=== PATIENT | female | born 1995 | race Caucasian/White ===

== ENCOUNTER 2018-10-27 19:42 | Emergency (ER) | payer OTHER, SELFPAY ==
[2018-10-27 19:44] VITALS: BP 143/78; PULSE 91; RESP 14; TEMP 36.9; O2SAT 99; BMI 37.9
--- NOTE | 2018-10-27 20:01 | US_ITS ---
STUDY: VENOUS DOPPLER ULTRASOUND - LEFT LOWER EXTREMITY REASON FOR EXAM: Female, 23 years old. Left-sided pain TECHNIQUE: Ultrasound evaluation of the deep vein system to include kan-scale imaging and compression was performed. Kan-scale imaging and Doppler sonographic evaluation, including duplex spectral analysis and qualitative color flow sonography, was performed. COMPARISON: None. FINDINGS: Common Femoral Vein: Normal compression, spontaneity and augmentation. Normal color Doppler. Common Femoral Vein/Greater Saphenous Junction: Normal compression, spontaneity and augmentation. Normal color Doppler. Deep Femoral Vein: Normal compression, spontaneity and augmentation. Normal color Doppler. Femoral Proximal: Normal compression, spontaneity and augmentation. Normal color Doppler. Femoral Middle: Normal compression, spontaneity and augmentation. Normal color Doppler. Femoral Distal: Normal compression, spontaneity and augmentation. Normal color Doppler. Popliteal Vein: Normal compression, spontaneity and augmentation. Normal color Doppler. Posterior Tibial Vein: Normal compression, spontaneity and augmentation. Normal color Doppler. Peroneal Vein: Normal compression, spontaneity and augmentation. Normal color Doppler. The visualized soft tissues are within normal limits. US/Venous Duplex Imag/Limited/Uni IMPRESSION: Normal venous Doppler ultrasound of the left lower extremity. Electronically Signed: Michael Reynolds, at 20:49 EST Tel , Service support ,
--- NOTE | 2018-10-27 20:03 | ED.VISSUMM ---
- ER Visit Summary Date of Service: 10/27/18 Chief Complaint: Left leg pain History of Present Illness: The patient is a [address] Dickey. She is a at 22 weeks of . She denies any vaginal bleeding or discharge. Normal movement. Patient reports that she has left leg pain that began 2 days ago. It is gradually gotten worse. Is continuous aching pain is 5 or 10 at rest and 7-10 with walking. She reports relieved by elevating her leg. She is not taking anything for pain. She denies any recent trauma. No fall, MVA, or change in activity. Patient does have a family history of DVT. No personal history of DVT. No recent travel. No chest pain or shortness of breath. Physical Examination: Vitals: Stable. Afebrile. General: Well-nourished and well-developed. Head: Normocephalic atraumatic. Neck: Supple, no lymphadenopathy. No JVD. Nontender. Cardiovascular: Regular rate and rhythm. No murmurs. Respiratory: No respiratory distress. Clear to auscultation bilaterally. Abdominal: Soft, nontender, nondistended, normal bowel sounds. No guarding, rebound, or peritoneal signs. Gravid uterus. Back: Nontender. Extremities: Mild tenderness palpation over the left tibialis anterior. Her pain is not reproduced with dorsiflexion against resistance. No pain over her calf or inner thigh. No edema. Skin: Normal color, no rash. Neurologic: Alert and oriented ?3. Cranial nerves II through XII are intact. Normal strength and sensation. Psych: Normal affect. Test Results: Left lower extremity Doppler was negative. Emergency Department Course and Treatment: Patient refused pain medications. She is resting comfortably. heart tones were 148. Treatment Plan: Patient will be discharged instructions to rest. Use Tylenol for pain. Follow-up with Dr. Dickey in 1 week if not improving. Return to the emergency department for any worsening symptoms. Disposition: To home in improved and stable condition. Impression: 1. Left leg pain. 2. Second trimester . This note was generated with [employer] software. It may contain incorrect words, spelling, and punctuation that were not noted in review of the chart prior to signing ED Disposition - Plan for ED Patient: Chief Complaint: Lower Extremity Injury Instructions: ED Muscle Pain Leg Cramps Referrals: Sean Dickey, DO [Primary Care Provider] - 1 Week if not improving
[2018-10-27 20:58] VITALS: BP 127/81; PULSE 82; RESP 17
--- OUTSIDE RECORDS SUMMARY | 2018-12-23 04:36 | XMS RPT_ITS ---
:1995 Author Organization [facility] Care Team Providers Name Role Phone Gaston Avitia Attending Unavailable Sean Dickey Primary Care Unavailable PROBLEMS PROBLEMS No Problem Records FoundPROCEDURES PROCEDURES No Procedure Records FoundRESULTS RESULTS EMERGENCY DEPARTMENT Observed: 10/27/2018 Status: F Source: [place] ME[facility]ING SUMMARY 11:11 PM [facility] REPOSITORY [facility] Medical Records Department [address] [place] [address] Emergency Department Summary 10/27/182002 MR#: [id number] Acct: [id number] Name: BELLA VELASCO Rep #: [id number] : 1995 23 From: Gaston Avitia MD PCP: Sean Dickey MD Status: DEP ER - ER Visit Summary Date of Service: 10/27/18 Chief Complaint: Left leg pain History of Present Illness: The patient is a [address] Dickey. She is a at 22 weeks of . She denies any vaginal bleeding or discharge. Normal movement. Patient reports that she has left leg pain that began 2 days ago. It is gradually gotten worse. Is continuous aching pain is 5 or 10 at rest and 7- 10 with walking. She reports relieved by elevating her leg. She is not taking anything for pain. She denies any recent trauma. No fall, MVA, or change in activity. Patient does have a family history of DVT. No personal history of DVT. No recent travel. No chest pain or shortness of breath. Physical Examination: Vitals: Stable. Afebrile. General: Well-nourished and well-developed. Head: Normocephalic atraumatic. Neck: Supple, no lymphadenopathy. No JVD. Nontender. Cardiovascular: Regular rate and rhythm. No murmurs. Respiratory: No respiratory distress. Clear to auscultation bilaterally. Abdominal: Soft, nontender, nondistended, normal bowel sounds. No guarding, rebound, or peritoneal signs. Gravid uterus. Back: Nontender. Extremities: Mild tenderness palpation over the left tibialis anterior. Her pain is not reproduced with dorsiflexion against resistance. No pain over her calf or inner thigh. No edema. Skin: Normal color, no rash. Neurologic: Alert and oriented 3. Cranial nerves II through XII are intact. Normal strength and sensation. Psych: Normal affect. Test Results: Left lower extremity Doppler was negative. Emergency Department Course and Treatment: Patient refused pain medications. She is resting comfortably. heart tones were 148. Treatment Plan: Patient will be discharged instructions to rest. Use Tylenol for pain. Follow-up with Dr. Dickey in 1 week if not improving. Return to the emergency department for any worsening symptoms. Disposition: To home in improved and stable condition. Impression: 1. Left leg pain. 2. Second trimester . This note was generated with [employer] dictation software. It may contain incorrect words, spelling, and punctuation that were not noted in review of the chart prior to signing ED Disposition - Plan for ED Patient: Chief Complaint: Lower Extremity Injury Instructions: ED Muscle Pain Leg Cramps Referrals: Sean Dickey, DO [Primary Care Provider] - 1 Week if not improving What to do if you have Problems For any increased pain, shortness of breath, bleeding, nausea or vomiting, chest pain, or any unexpected problems, contact your Primary Care Provider. Call [facility] ([phone]) or report to the closest Emergency Room. Call 911 if necessary. 10/27/18 2311 <Electronically signed by Gaston Avitia MD> Date Gaston Avitia MD Cosigner Signature (If Indicated): Date CC: Sean Dickey MD VENOUS DUPLEX Observed: 10/27/2018 Status: F Source: [facility] IMAG/LIMITED/UNI 8:01 PM [facility] REPOSITORY [facility] Imaging Services [address] [address] Venous Duplex Imag/Limited/Uni MR#: [id number] Acct: [id number] Name: BELLA VELASCO Rep #: [id number] : 1995 F 23 From: Michael Reynolds MD PCP: Sean Dickey MD Status: REG ER Study: Venous Duplex Imag/Limited/Uni Date of Exam: 10/27/18 Exam# [id number] Ordering Dr: Gaston Avitia MD STUDY: VENOUS DOPPLER ULTRASOUND - LEFT LOWER EXTREMITY REASON FOR EXAM: Female, 23 years old. Left-sided pain TECHNIQUE: Ultrasound evaluation of the deep vein system to include kan-scale imaging and compression was performed. Kan-scale imaging and Doppler sonographic evaluation, including duplex spectral analysis and qualitative color flow sonography, was performed. COMPARISON: None. FINDINGS: Common Femoral Vein: Normal compression, spontaneity and augmentation. Normal color Doppler. Common Femoral Vein/Greater Saphenous Junction: Normal compression, spontaneity and augmentation. Normal color Doppler. Deep Femoral Vein: Normal compression, spontaneity and augmentation. Normal color Doppler. Femoral Proximal: Normal compression, spontaneity and augmentation. Normal color Doppler. Femoral Middle: Normal compression, spontaneity and augmentation. Normal color Doppler. Femoral Distal: Normal compression, spontaneity and augmentation. Normal color Doppler. Popliteal Vein: Normal compression, spontaneity and augmentation. Normal color Doppler. Posterior Tibial Vein: Normal compression, spontaneity and augmentation. Normal color Doppler. Peroneal Vein: Normal compression, spontaneity and augmentation. Normal color Doppler. The visualized soft tissues are within normal limits. US/Venous Duplex Imag/Limited/Uni IMPRESSION: Normal venous Doppler ultrasound of the left lower extremity. Electronically Signed: Michael Reynolds, at 20:49 EST Tel , Service support , CC: Sean Dickey MD; Gaston Avitia MD Central Office Technician: Signed ALLERGIES ALLERGIES DATE TYPE / CODE NAME / CODE REACTION SEVERITY SOURCE 10/27/2018 [address] No Known Unknown [facility] Allergy/4160 Allergies/F00 Hospital 27635(SNOMED [id number](RXNOR Repository CT) M) ENCOUNTERS ENCOUNTERS ADMIT/DISCHARGE ACCOUNT ADMITTING ENCOUNTER LOCATION SOURCE NUMBER CLASS 10/27/2018/11/28/ [id number] Emergency [place] [address] ing:ED Repository PAYERS PAYERS ENCOUNTER GUARANTOR PAYER SUBSCRIBER SOURCE 10/27/2018 DHIRAJ Manzanares Primary DHIRAJ Srivastava [id number] Insurance:SHARONA SIMPSON [facility] Number: [place], [place] Effective Repository [id number]: NO Date:2018-10-27 PHONE () 10/27/2018 Secondary NOT MADY [place] Insurance:SELF PAY [facility] Number: Effective Repository Date:2018-10-27
== END 2018-10-27 20:59 | disposition home or self-care (01) ==
LOC: ED 20:37
PROVIDERS: Emergency Provider Emergency Medicine; Family Provider Family Medicine; PCP Family Medicine
DX: O26.892 Other specified pregnancy related conditions, second trimester (principal); M79.605 Pain in left leg; Z3A.22 22 weeks gestation of pregnancy
CPT/HCPCS: 93971; 99282